=== PATIENT | male | born 1960 | race Caucasian/White ===

== ENCOUNTER 2018-02-01 12:35 | Inpatient (IN) | payer BC ==
[~2018-02-01] VITALS: Ht 177.8 cm; Wt 110.0 kg
--- NOTE | ~2018-02-01 | EC ---
PATIENT:NIGEL HUTCHINSON DATE OF SERVICE: 02/01/18 SEX: M MEDICAL RECORD: [id number] DATE OF : 58 LOCATION:D.M2 D.213 AGE OF PATIENT: 57 ADMISSION DATE: 02/01/18 REFERRING PHYSICIAN: INTERPRETING PHYSICIAN: AAKASH PATEL MD ECHOCARDIOGRAM REPORT ECHO CHARGES 4 ECHO COMPLETE Date: 02/01/18 CLINICAL DIAGNOSIS: ORTHEPNEA ECHOCARDIOGRAPHIC MEASUREMENTS (adult normal given) AC root (d.<3.7cm) 3.2 cm LV Septum d (<1.2 cm> 1.0 cm Valve Excursion 1.6 cm LV Septum (systole) 1.1 cm Left Atria (s.<4.0cm> 3.9 cm LVPW d(<1.2cm) 1.3 cm RV (d.<2.3cm) 2.8 cm LVPW (sytole) 1.4 cm LV diastole(<5.6CM) 7.6 cm MV E-F(>70mm/sec) cm LV systole 6.9 cm LVOT Diameter 2.1 cm MV exc.(>10mm) cm Est.ejection fraction (50-75%) % DOPPLER: LVIT cm/sec A 36 cm/sec E 88 cm/sec LA cm/sec RVSP 51.7 mmHg LVOT 73 cm/sec AOP1/2T m/s Asc. Ao 99 cm/sec RVOT 57 cm/sec RA cm/sec PA 75 cm/sec AV Gradient Peak 3.9 mmHg AV Mean 2.8 mmHg AV Area 2.0 cm MV Gradient Peak 3.7 mmHg MV Mean 1.4 mmHg MV Area cm COMMENTS: Manager Cancer: Peg CHANDLER Binding End Stitcher: 3 Dr. Leal TAPE# PACS Pericardial Effusion Y DATE OF SERVICE: Adequate 2-D echo, color flow and spectral Doppler, and M-mode. LVH is present. LV internal dimensions are normal. LV severely hypokinetic decreased estimated EF 20% to 25%. Aortic valve sclerosis without stenosis by Doppler interrogation. Left atrium is dilated. Mitral valve shows no prolapse. [id number] MR. Right-sided chamber is normal. Mild TR. TRANSINT:[id number] Voice Confirmation ID: [id number] DOCUMENT ID: [id number] ECHOCARDIOGRAM REPORT [id number] NIGEL HUTCHINSON AAKSAH PATEL MD at 1310 CC: [id number] DICTATION DATE: 02/01/18 1529 [employer]INT RO[employer]ERS SUPERVISOR: 02/01/18 1815 ADM IN [place] [id number] [place] [address]
--- NOTE | ~2018-02-01 | MORECARE ---
CASE MANAGEMENT DISCHARGE SUMMARY PATIENT: NIGEL HUTCHINSON UNIT: [id number] ADM DATE: 02/01/18 AGE: 57 : 58 SEX: M ROOM/BED: D.2131 AUTHOR: STEFANIE COATS PHYSICIAN: REFERRING PHYSICIAN: NIGEL KEBEDE MD DATE OF SERVICE: 02/04/18 Discharge Plan Patient Name: NIGEL HUTCHINSON Facility: [facility]:[place] : 1960 Planned Disposition: Home Anticipated Discharge Date: 02/04/18 Discharge Date: 02/04/2018 Expected LOS: 3 Initial Reviewer: [email or web address] Initial Review Date: 02/04/2018 Generated: 02/04/18 12:00 pm Comments DCP- Discharge Planning Updated by [email or web address]: Brenton Ramirez on 02/04/18 9:[address] Patient Name: NIGEL HUTCHINSON Admission Status: Elective Accout number: [id number] Admission Date: 02-01-2018 : 1960 Admission Diagnosis:SHORTNESS OF BREATH Attending: NIGEL KEBEDE Current LOS: 3 Anticipated DC Date: 02-04-2018 Planned Disposition: Home Primary Insurance: [employer] Discharge Planning Comments: CM MET WITH PT IN ROOM TO DISCUSS DISCHARGE PLANNING AND NEEDS. PT REPORTS LIVING AT HOME INDEPENDENTLY WITH HIS SPOUSE. PT HAS GLUCOMETER WITH NO MEDICAL EQUIPMENT AND NO OUTSIDE SERVICES ASSISTING IN THE HOME. PT REPORTS HE HAS NOT BEEN CHECKING HIS BLOOD SUGAR LIKE HE IS SUPPOSED TO HE HAS BEEN PAYING FOR HIS TESTING STRIPS OUT OF POCKET AND THEY ARE EXPENSIVE. CM EXPLAINED THAT PT SHOULD ASK HIS DOCTOR FOR A PRESCRIPTION, PRESENT TO HIS PHARMACY AND STRIPS MAY BE COVERED BY HIS INSURANCE. CM DISCUSSED AVAILABILITY OF HOME HEALTH, REHAB SERVICES AND MEDICAL EQUIPMENT. PT DENIES DISCHARGE NEEDS, REPORTS HIS WILL PICK WILL UP FOR DISCHARGE HOME. PT IS INTERESTED IN THE TOBACCO QUIT LINE INFORMATION; CM NOTIFIED WOODEN FENCE ERECTOR NURSE. Supervisor Mapping: Brenton Ramirez DCPIA - Discharge Planning Initial Assessment Updated by [email or web address]: Brenton Ramirez on 02/04/18 10:47 am * Is the patient Alert and Oriented? Yes * How many steps to enter\exit or inside your home? NONE * PCP DR. HERNANDEZ * Pharmacy [facility] ([facility]) ON [facility] * Preadmission Environment Home with Family * ADLs Independent * Equipment Glucometer * Other Equipment NO MEDICAL EQUIPMENT PROVIDER PREFERECE * List name and contact numbers for known caregivers / representatives who currently or will assist patient after discharge: RICHARD HUTCHINSON, SPOUSE, [phone] * Verbal permission to speak to the caregivers and representatives has been obtained from the patient. N/A * Community resources currently utilized None * Please name any agencies selected above. NONE * Additional services required to return to the preadmission environment? No * Can the patient safely return to the preadmission environment? Yes * Has this patient been hospitalized within the prior 30 days at any hospital? No Last DP export: 02/04/18 9:50 a Patient Name: NIGEL HUTCHINSON Page [phone] at 1100 All edits/amendments must be made on the electronic document DICTATION DATE: 02/04/181058 GENERAL MAINTENANCE MECHANIC: SARAH 02/04/18 105 RPT#: [id number] DC DATE:02/04/18 STATUS: DIS IN [facility] [address] [place] [address] END OF REPORT
--- NOTE | ~2018-02-01 | MORECARE ---
CASE MANAGEMENT DISCHARGE SUMMARY PATIENT: NIGEL HUTCHINSON UNIT: [id number] ADM DATE: 02/01/18 AGE: 57 : 58 SEX: M ROOM/BED: D.2131 AUTHOR: STEFANIE COATS PHYSICIAN: REFERRING PHYSICIAN: NIGEL KEBEDE MD DATE OF SERVICE: 02/04/18 Discharge Plan Patient Name: NIGEL HUTCHINSON [facility] : 1960 Planned Disposition: Home Anticipated Discharge Date: 02/04/18 Discharge Date: 02/04/2018 Expected LOS: 3 Initial Reviewer: [email or web address] Initial Review Date: 02/04/2018 Generated: 02/04/18 11:50 am DCPIA - Discharge Planning Initial Assessment Updated by [email or web address]: Brenton Ramirez on 02/04/18 10:47 am * Is the patient Alert and Oriented? Yes * How many steps to enter\exit or inside your home? NONE * PCP DR. HERNANDEZ * Pharmacy [facility] ([facility] ON [facility] * Preadmission Environment Home with Family * ADLs Independent * Equipment Glucometer * Other Equipment NO MEDICAL EQUIPMENT PROVIDER PREFERECE * List name and contact numbers for known caregivers / representatives who currently or will assist patient after discharge: RICHARD HUTCHINSON, SPOUSE, [phone] * Verbal permission to speak to the caregivers and representatives has been obtained from the patient. N/A * Community resources currently utilized None * Please name any agencies selected above. NONE * Additional services required to return to the preadmission environment? No * Can the patient safely return to the preadmission environment? Yes * Has this patient been hospitalized within the prior 30 days at any hospital? No Patient Name: NIGEL HUTCHINSON Page [phone] at 1050 All edits/amendments must be made on the electronic document DICTATION DATE: 02/04/18 1049 EVP BUSINESS DEVELOPMENT: SARAH 02/04/18 1049 RPT#: [id number] DC DATE:02/04/18 STATUS: DIS IN [id number] [place] [address] END OF REPORT
--- NOTE | ~2018-02-01 | OP ---
PATIENT NAME: NIGEL HUTCHINSON MEDICAL RECORD: [id number] :58 LOCATION:D.M2 D.2131 ADMISSION DATE:02/01/18 SURGEON: AAKASH PATEL MD DATE OF OPERATION: 02/03/2018 PROCEDURE: Left heart catheterization, selective coronary angiography, right femoral artery approach. CATHETERS: A 5-Turkish sheath, 5/4 left and right Loly, 5/4 pig. Procedure was well tolerated. The patient was returned to the ayala. Sheaths were removed. ExoSeal device was placed. FINDINGS: Left Ventriculography 30-Degree BLACK View: Shows severe global hypokinesis, reduced EF, estimated EF 15% to 20%. CORONARY ANATOMY: LEFT MAIN: Left main is free of disease. LAD: Free of disease in the diagonal system. CIRCUMFLEX: Has a long diffuse area. Multiple stenosis, at the greatest being 90%, more distal of 80%. RIGHT CORONARY ARTERY: Totally occluded and there are previous stenting and fills via left to right collaterals. PLAN: Intervention in the circumflex momentarily. DESCRIPTION OF PROCEDURE: A 5-Turkish sheath was exchanged for a 6-Turkish sheath. A 3.5 EBU guide catheter provided good guide catheter support, followed by a Whisper wire placed across the diffusely tightly stenosed circumflex, down this portion of this vessel stents were deployed, 3.5 x 18 and 3.5 x 12, both Armando drug-eluting stent up to 14 atmospheres. Final angiography shows a nice resolution of a diffuse diabetic-type stenosis with the greatest being 90%. No significant residual. RAFAELA flow was 3 throughout the procedure. Integrilin was used in the case. Sheath was closed with ExoSeal device. Paxil was loaded in the lab. TRANSINT:[id number] Voice Confirmation ID: [id number] DOCUMENT ID: [id number] AAKASH PATEL MD CC: [id number] DICTATION DATE: 02/03/18 1518 EDI MANAGER: 02/03/180 ADM IN [place] [id number] [place] [address]
--- NOTE | ~2018-02-01 | HP ---
PATIENT: NIGEL HUTCHINSON MEDICAL RECORD: [id number] ACCOUNT: [id number] LOCATION:[address] : 58 ADMISSION DATE: 02/01/18 PCP: TROY HERNANDEZ MD HISTORY AND PHYSICAL EXAMINATION DATE OF ADMISSION: 02/01/2018 CHIEF COMPLAINT: Shortness of breath. HISTORY: This is a 57-year-old white male, who has a known history of coronary artery disease, diabetes, continuing to smoke, who states that it has been tough for him to breathe for the last 3 weeks. He cannot sleep because he is short of breath. He describes orthopnea. He cannot lay down flat. He has to sit up just to sleep. He states he has been coughing a lot. He has had pain in his chest, which he attributes to coughing so much. He has abdominal pain that he attributes from coughing so much. A chest x-ray was done showing cardiomegaly and some increased congestion. He has not seen a health care social worker in at least 5 years. He has had stents in the past at [facility]. He is admitted for further evaluation and to rule out heart problems. PAST MEDICAL AND SURGICAL HISTORY: Hypertension, hypercholesterolemia and very high triglycerides, anxiety, depression, coronary artery disease, history of pancreatitis, and diabetes. PAST SURGICAL HISTORY: He has had stents placed by Dr. Sims at [facility] in 2011 or 2012. ALLERGIES: None. HOME MEDICATIONS: Gabapentin 400 mg twice a day, alprazolam 1 mg twice a day, pravastatin 40 mg at bedtime, Januvia 100 mg once a day, metoprolol tartrate once a day, metformin 1000 mg twice a day; however, he admitted to the nurse today that he has not been taking all these medicines all the time. SOCIAL HISTORY: He is . He is employed. HABITS: He smokes every day. He has an occasional beer. FAMILY HISTORY: Father is alive with hypertension. His mother at 71 due to COPD complications. REVIEW OF SYSTEMS: GENERAL: No major weight changes. HEENT: No particular sinus or allergy problems. RESPIRATORY: Long-time smoker. No diagnosis as yet for COPD or emphysema. CARDIAC: See above history with stenting by Dr. Sims years ago. He has not seen a health care social worker in several years. GASTROINTESTINAL: He has heartburn. GENITOURINARY: No significant problems there. MUSCULOSKELETAL: No significant problems there. NEUROLOGIC: No migraines. No seizures. PSYCHIATRIC: He has anxiety. PHYSICAL EXAMINATION: VITAL SIGNS: Temperature 98.1, pulse 107, respirations 18, blood pressure HISTORY AND PHYSICAL [id number] NIGEL HUTCHINSON 149/100, O2 sat 97% on 2 liters. He does not appear well. He is complaining of his abdominal bloating, pain, and inability to take a deep breath. HEENT: Grossly within normal limits. NECK: Supple. No JVD or bruit. HEART: Regular rate and rhythm. LUNGS: With decreased breath sounds in the bases bilaterally. ABDOMEN: Soft. Generalized tenderness. No guarding or rebound. No mass. EXTREMITIES: Trace to 1+ edema. LABORATORY DATA: Labs done today: CBC showed a white count of 8400, hemoglobin 14.4, hematocrit 42.3, platelets are normal. Basic metabolic panel was unremarkable. Creatinine 1.0. Glucose is high at 215. A1c is 9.5. Liver enzymes were all normal. Troponin 0.018. ProBNP 1548. IMAGING: Chest x-ray shows cardiomegaly with findings suggestive of a small left pleural effusion and left basilar atelectasis. ASSESSMENT: 1. Orthopnea. 2. Cardiomegaly. 3. Most likely congestive heart failure. PLAN: Follow up with echo. Cardiology has been consulted. Other tests or procedures as warranted. TRANSINT:[id number] Voice Confirmation ID: [id number] DOCUMENT ID: [id number] TROY HERNANDEZ MD at 0837 CC: [id number] DICTATION DATE: 02/01/181899 STATION INSPECTOR: 02/02/18 0013 [facility] IN [id number] [place] [address]
--- NOTE | ~2018-02-01 | HEMODYNAMI ---
PATIENT:NIGEL HUTCHINSON MEDICAL RECORD: [id number] : 58 [facility] [id number] ADMISSION DATE: 02/01/18 Generatedon:02/03/201815:12 Patient name: NIGEL HUTCHINSON Patient #: [id number] SSN: : 1960 Date of study: 02/03/2018 Page: Of Hemodynamic Procedure Report Patient Data Patient Demographics Procedure consent was obtained First Name: NIGEL Gender: Male Last Name: JASPER : 1960 Middle Initial: A Age: 57 year(s) Patient #: [id number] Race: Unknown Additional ID: [id number] Contact details Address: [address] [place] [address] [place] State: [place] City: [place] Zip code: [address] Past Medical History Allergies: No known allergies Admission Admission Data Admission Date: 02/01/2018 Admission Time: 12:35 Room #: [facility] Procedure Procedure Types Cath Procedure Diagnostic Procedure LHC LHC w/Coronaries Sedation Charges Moderate Sedation up to 15 minutes PCI Procedure Coronary Stent Coronary Stent Initial Procedure Description Procedure Date Procedure Date: 02/03/2018 Procedure Start Time: 14:48 Procedure End Time: 15:07 Procedure Staff Name Function Alan Johansen MD Performing Physician Yariel Mosley RT Monitor Manuela Irizarry RT Scrub Rody Crocker RN Nurse Keagan Garnett RN Representative Phlebotomy Services Procedure Data Cath Procedure Fluoroscopy Diagnostic fluoroscopy Total fluoroscopy Time: 4.1 time: 4.1 min min Diagnostic fluoroscopy Total fluoroscopy dose: dose: 1022 mGy 1022 mGy Contrast Material Contrast Material Type Amount (ml) Isovue 300 120 Entry Location Entry Primary Successful Side Size Upsize Upsize Entry Closure Succes sful Closure Location (Fr) 1 (Fr) 2 (Fr) Remarks Device Remarks Femoral Right 5 Fr 6 Fr Exoseal artery Short Estimated blood loss: 10 ml Diagnostic catheters Device Type Used For End Catheter Placement MULTIPACK JL 4.0 5Fr Procedure catheter MULTIPACK 3DRC 5Fr Procedure catheter MULTIPACK Pigtail 5 Fr Procedure catheter Procedure Complications No complications Procedure Medications Medication Administration Route Dosage 0.9% NaCl I.V. 100 ml/hr Oxygen etCO2 Nasal cannula 2 l/min Lidocaine 2% added to field 20 Heparin Flush Bag added to field 2 bags (1000units/500ml NS) Versed I.V. 1 mg Fentanyl I.V. 50 mcg Versed I.V. 1 mg Fentanyl I.V. 50 mcg Heparin Bolus I.V. 4000 units Integrilin (Bolus I.V. 10.2 ml 2mg/ml) Versed I.V. 1 mg Versed I.V. 1 mg Plavix P.O. 600 mg Hemodynamics Rest Heart Rate: 76 (bpm) Pressure Samples Time Site Value (mmHg) Purpose Heart Use Rate(bpm) 14:54 LV 107/6,34 Snapshot 83 Snapshots Pre Cath Intra NCS Post Cath Vital Signs Time Heart Resp SPO2 etCO2 NIBP Rhythm Pain Sedation Rate (ipm) (%) (mmHg) (mmHg) Status Level (bpm) 14:35:49 89 16 97 0 No Cuff NSR 0 (11) 10(A) , No pain 14:40:15 88 16 94 37.8 117/80(96) NSR 0 (11) 10(A) , No pain 14:44:33 86 13 92 30.2 121/77(89) NSR 0 (11) 10(A) , No pain 14:48:49 74 18 98 0 110/79(91) NSR 0 (11) 10(A) , No pain 14:53:01 82 16 93 33.2 121/79(93) NSR 0 (11) 9(A) , No pain 14:57:19 83 13 97 32.5 112/65(92) NSR 0 (11) 9(A) , No pain 15:02:41 78 15 98 36.3 106/72(86) NSR 0 (11) 9(A) , No pain 15:06:55 83 15 97 33.2 116/72(91) NSR 0 (11) 10(A) , No pain Medications Time Medication Route Dose Verified Delivered Reason Notes Effectiveness by by 14:34:45 0.9% NaCl I.V. 100 Alan Rody used for ml/hr [facility] Crocker procedure RN 14:34:51 Oxygen etCO2 2 Alan Rody used for Nasal l/min [facility] procedure cannula MD FITZGERALD 14:34:56 Lidocaine 2% added 20ml Alan Phillips for local to vial [facility] anesthetic field MD NEGRO 14:35:03 Heparin Flush added 2 Alan Phillips used for Bag to bags [facility] procedure (1000units/500ml field MD NEGRO NS) 14:38:52 Versed I.V. 1 mg Alan Boogie for sedation [facility] Ambros[facility] Garnett RN, MD 14:38:59 Fentanyl I.V. 50 Alan Boogie for sedation mcg [facility] Ambrosio Garnett RN, MD 14:42:05 Versed I.V. 1 mg Alan Boogie for sedation [facility] Amb[facility] Garnett RN, MD 14:42:37 Fentanyl I.V. 50 Alan Boogie for sedation mcg [facility] Ambrosio Garnett RN, MD 14:49:04 Versed I.V. 1 mg Alan Dickinsonie for sedation [facility] Amb[facility] Garnett RN, MD 14:57:34 Heparin Bolus I.V. 4000 Alan Boogie for verif ied units [facility] Ambrosio Garnett RN anticoagulation with dr MD dorman 14:59:50 Integrilin I.V. 10.2 Alan Boogie for waste d (Bolus 2mg/ml) ml [facility] Amb[facility]io Garnett RN antiplatelet 9.8 ml therapy of vial 15:02:11 Versed I.V. 1 mg Alan Boogie for sedation [facility] Ambrosio Garnett RN, MD 15:09:36 Plavix P.O. 600 [address] for mg [facility] Amb[facility]io Garnett RN antiplatelet therapy Procedure Log Time Note 14:20:35 Signed procedure consent form obtained from patient. 14:20:36 Time tracking: Regular hours (M-F 7:00 - 5:00) 14:20:43 Plan of Care:Hemodynamics will remain stable., Cardiac rhythm will remain stable., Comfort level will be maintained., Respiratory function will remain adequate., Patient/ family verbilizes understanding of procedure., Procedure tolerated without complication., Recovers from procedure without complications.. 14:21:04 H&P Date Dictated: 02/01/2018 Within 30 days and on chart., H&P Addendum completed by physician on day of procedure. (MUST COMPLETE FOR ALL OUTPATIENTS). 14:21:13 Patient allergic to No known allergies 14:21:32 Yariel ROMO(R) sent for patient. Start room use. 14:29:21 Patient received from PCU to CCL 1 Alert and oriented. Tansferred to table in Supine position. 14:29:22 Warm blankets applied, and isamar hugger turned on for patient comfort. 14:29:22 Correct patient and procedure confirmed by team. 14:29:23 ECG and BP/O2 sat monitors applied to patient. 14:29:24 Full Disclosure recording started 14:34:29 Pre-procedure instructions explained to patient. 14:34:29 Pre-op teaching completed and patient verbalized understanding. 14:34:31 Family in patients room. 14:34:33 Patient NPO since Midnight. 14:34:36 Is patient on blood thinner?No 14:34:37 Patient diabetic? Yes. 14:34:38 If diabetic: On Metformin? Yes 14:34:41 If on Metformin: Last Dose? 02/03/2018 14:34:45 0.9% NaCl 100 ml/hr I.V. was administered by Rody Crocker RN; used for procedure; 14:34:46 Previous problem with sedation/anesthesia? No ? 14:34:51 Oxygen 2 l/min etCO2 Nasal cannula was administered by Rody Crocker RN ; used for procedure; 14:34:51 Snore? Yes 14:34:52 Sleep apnea? No 14:34:53 Deviated septum? No 14:34:54 Opens mouth fully? Yes 14:34:55 Sticks out tongue? Yes 14:34:56 Lidocaine 2% 20ml vial added to field was administered by Alan Johansen MD; for local anesthetic; 14:34:56 Airway obstruction? No ? 14:35:03 Heparin Flush Bag (1000units/500ml NS) 2 bags added to field was administered by Alan Johansen MD; used for procedure; 14:35:03 Dentures? Yes OUT 14:35:09 Vital chart was started 14:36:36 IV patent on arrival in left forearm with 0.9% NaCl at [facility]. 14:36:40 Lab results completed and on chart. 14:36:43 Right groin area was prepped with chlora-prep and draped in sterile fashion 14:36:44 Alarms reviewed by Domingo Haney 14:36:45 - 14:36:49 Pre procedure: right dorsailis pedis pulse 2+ Normal; easily identifiable; not easily obliterated 14:37:31 Rhythm: sinus rhythm 14:37:42 --------ALL STOP TIME OUT------ 14:37:43 Final Timeout: patient, procedure, and site verified with staff and physician. All members of the team are in agreement. 14:37:45 Right groin site verified by team. 14:37:48 Physical assessment completed. ASA score P 2 - A patient with mild systemic disease as per Alan Johansen MD. 14:37:51 Sedation plan: IV Moderate Sedation Medication:Versed, Fentanyl 14:37:56 Use device set Femoral Dx 14:37:57 ACIST Syringe (12509) opened to sterile field. 14:38:06 Bag Decanter (2002S) opened to sterile field. 14:38:07 ACIST Hand Control (54348) opened to sterile field. 14:38:08 ACIST Manifold (86870) opened to sterile field. 14:38:09 Tegaderm 4 x 4 (1626W) opened to sterile field. 14:38:11 Medline Cath Pack ([id number]) opened to sterile field. 14:38:11 DIAGNOSTIC WIRE .035 260cm J wire (329150) opened to sterile field. 14:38:13 DIAGNOSTIC Multipack 5Fr catheter set (NS2788) opened to sterile field. 14:38:15 SHEATH 5FR [place] (PUE647) opened to sterile field. 14:38:52 Versed 1 mg I.V. was administered by Keagan Garnett RN; for sedation; 14:38:59 Fentanyl 50 mcg I.V. was administered by Keagan Garnett RN; for sedation; 14:42:05 Versed 1 mg I.V. was administered by Keagan Garnett RN; for sedation; 14:42:22 Baseline sample Acquired. 14:42:37 Fentanyl 50 mcg I.V. was administered by Keagan Garnett RN; for sedation; 14:46:31 Zero performed for pressure channel P1 14:48:15 Procedure started. 14:48:18 Local anesthetic to right femoral artery with Lidocaine 2% by Alan Valente MD.INITIAL ACCESS ONLY 14:48:40 A 5 Fr sheath was inserted into the Right Femoral artery 14:49:04 Versed 1 mg I.V. was administered by Keagan Garnett RN; for sedation; 14:50:31 A MULTIPACK JL 4.0 5Fr catheter was advanced over the wire and used for Procedure. 14:51:02 LCA angiography performed. 14:51:59 Catheter exchanged over wire. 14:52:09 A MULTIPACK 3DRC 5Fr catheter was advanced over the wire and used for Procedure. 14:52:51 RCA angiography performed. 14:53:40 Catheter exchanged over wire. 14:53:44 A MULTIPACK Pigtail 5 Fr catheter was advanced over the wire and used for Procedure. 14:54:24 LV gram done using BLACK 14:54:30 Injector settings: Ml/sec: 10, Volume: 20, 14:54:34 LV hemodynamics recorded. 14:54:53 EF : 15 % 14:54:58 Catheter removed. 14:55:27 INFLATOR Merit BasixCompak (ZK8708) opened to sterile field. 14:55:28 SHEATH 6FR [place] (KQF613) opened to sterile field. 14:55:53 GUIDE 6FR EBU 3.5 catheter ([id number]) opened to sterile field. 14:56:03 WHISPER 300cm guide wire ([id number]) opened to sterile field. 14:56:16 Sheath upsized to a 6 Fr Short. 14:56:27 6 Fr EBU 3.5 guide catheter was inserted over the wire 14:56:33 WHISPER wire advanced. 14:57:34 Heparin Bolus 4000 units I.V. was administered by Keagan Garnett RN; for anticoagulation; verified with dr dorman 14:59:33 Wire advanced across lesion. 14:59:50 Integrilin (Bolus 2mg/ml) 10.2 ml I.V. was administered by Keagan Garnett RN; for antiplatelet therapy; wasted 9.8 ml of vial 15:00:30 Place stent Inflation Number: 1 A ANGELA OTW 3.5 x 18 stent ([id number]) was prepped and advanced across the Mid CX. The stent was deployed at 14 FRANKY for 0:30 (min:sec). 15:01:45 Inflation number: 2 The stent balloon was then re-inflated across the Mid CX to 14 FRANKY for 0:45 (min:sec). 15:01:47 Stent catheter was removed intact over wire. 15:02:11 Versed 1 mg I.V. was administered by Keagan Garnett RN; for sedation; 15:04:37 Place stent Inflation Number: 3 A ANGELA OTW 3.5 x 12 stent ([id number]) was prepped and advanced across the Mid CX. The stent was deployed at 14 FRANKY for 0:30 (min:sec). 15:04:56 Stent catheter was removed intact over wire. 15:04:57 Wire removed. 15:04:58 Guide catheter removed. 15:05:07 EXOSEAL 6Fr (EX600) opened to sterile field. 15:05:15 Sheath removed intact; hemostasis achieved with Exoseal to the Right Femoral artery. 15:05:16 Procedure ended.(Physican Out) 15:05:51 Fluoroscopy time 04.10 minutes. 15:05:55 Fluoroscopy dose: 1022 mGy 15:05:55 Flurop Dose total: 1022 15:06:00 Contrast amount:Isovue 300 120ml. 15:06:02 Sharps counted by scrub and verified by R.N. 15:06:03 Insertion/operative site no bleeding no hematoma. 15:06:06 Post-op/insertion site Right Femoral artery dressed using a 4 x 4 and Tegaderm. 15:06:10 Post right femoral artery:stable, soft, clean and dry 15:06:12 Post Procedure Pulses reassessed and unchanged 15:06:15 Post-procedure physical assessment completed. ASA score P 2 - A patient with mild systemic disease as per Alan Johansen MD. 15:06:17 Post procedure rhythm: unchanged. 15:06:48 Estimated blood loss: 10 ml 15:06:49 Post procedure instruction explained to patient.Patient verbalizes understanding. 15:06:50 Patient needs reinforcement of post procedure teaching. 15:07:25 Procedure type changed to Cath procedure, Diagnostic procedure, LHC, LH C w/Coronaries, Sedation Charges, Moderate Sedation up to 15 minutes, PCI procedure, Coronary Stent, Coronary Stent Initial 15:07:26 Procedure and supply charges have been captured, reviewed, submitted an d are correct. 15:07:28 Procedure Complication : No complications 15:07:30 Vital chart was stopped 15:07:30 See physician's report for complete and final results. 15:07:31 Report given to PCU. 15:07:34 Patient transfered to PCU with Stretcher. 15:07:36 Procedure ended. 15:07:36 Full Disclosure recording stopped 15:07:41 End room use (Document Last) 15:09:36 Plavix 600 mg P.O. was administered by Keagan Garnett RN; for antiplatelet therapy; Intervention Summary Intervention Notes Time ActionType Lesion and Equipment Action# Pressure Duration Attributes Used 15:00:30 Place stent Mid CX ANGELA OTW 3.5 1 14 00:30 x 18 stent ([id number]) 15:01:45 Reinflate Mid CX ANGELA OTW 3.5 2 14 00:45 stent x 18 stent balloon ([id number]) 15:04:37 Place stent Mid CX ANGELA OTW 3.5 3 14 00:30 x 12 stent ([id number]) Device Usage Item Name Manufacture Quantity Catalog Hospital Part Current Mini mal Lot# / Number Charge Number Stock Stock Serial# Code ACIST Syringe Acist 1 66884 557939 349686 910677 20 (92138) Medical Systems Inc Bag Decanter Microtek 1 2001S 608605 09774 202395 5 (2001S) Medical Inc. ACIST Hand Acist 1 44141 334684 785537 631897 5 Control Medical (22669) Systems Inc ACIST Acist 1 15808 910180 730531 322391 5 Manifold Medical (60909) Systems Inc Tegaderm 4 x 3M 1 1626W 058124 373119 612449 5 4 (1626W) Medline Cath Medline 1 [id number] 244505 63209 415557 5 Pack ([id number]) DIAGNOSTIC [facility] 1 390067 064368 321130 833834 30 WIRE .035 260cm J wire (359577) DIAGNOSTIC Cardinal 1 YE4858 220222 00829 257986 30 Multipack 5Fr Health catheter set (BR6379) SHEATH 5FR Terumo 1 XCQ755 440490 176410 858102 5 [place] (XIQ301) MULTIPACK JL Cardinal 1 584214 5 4.0 5Fr Health catheter MULTIPACK Cardinal 1 180540 5 3DRC 5Fr Health catheter MULTIPACK Cardinal 1 659011 5 Pigtail 5 Fr Health catheter INFLATOR [facility] 1 BD8081 246802 442015 218571 15 [facility] Medical BasixCompak (MS4681) SHEATH 6FR Terumo 1 VAF580 997055 618609 596357 40 [place] (XXT720) GUIDE 6FR EBU Medtronic 1 [id number] 836916 59839 620910 3 3.5 catheter (CY3DNT37) WHISPER 300cm Amaya 1 [id number] 729964 226513 941917 5 guide wire Vascular (8372645NS) ANGELA OTW 3.5 Medtronic 1 [id number] 217765 6048796 464209 5 [id number] x 18 stent ([id number]) ANGELA OTW 3.5 Medtronic 1 [id number] 514154 8585260 260513 5 [id number] x 12 stent ([id number]) EXOSEAL 6Fr Cardinal 1 EX600 030833 507833 054676 10 (EX600) Health Signature Audit [place] Stage Time Signature Unsigned Intra-Procedure 02/03/2018 Yariel Mosley 3:12:06 PM RT(R) Signatures Monitor : Yariel Mosley RT Signature : Date : Time : [address] [place] [address]
[2018-02-01] MEDS ORDERED: XANAX1 MG PO (13:09)
[2018-02-01] MEDS ORDERED: PRAVACHOL40 MG PO (13:10)
[2018-02-01] MEDS ORDERED: BAYER ASPIRIN325 MG PO (13:10)
[2018-02-01] MEDS ORDERED: ALEVE220 MG PO (13:11)
[2018-02-01] MEDS ORDERED: GABAPENTIN100 MG PO (13:12)
[2018-02-01 13:39] VITALS: BP 149/100; BMI 37.0
[2018-02-01 14:17] LABS: BASOPHILS 0.4 % (0-2); EOSINOPHILS 0.8 % (0-7); HEMATOCRIT 42.3 % (42.0-54.0); HEMOGLOBIN 14.4 g/dL (13.5-17.5); IMMATURE GRANULOCYTES 0.5 % (0-5); LYMPHOCYTES 29.3 % (15-50); MCH 32.5 pg (26.0-34.0); MCV 95.5 fL (80.0-100.0); MONOCYTES 7.4 % (2-11); NEUTROPHILS 61.6 % (40-80); PLATELET COUNT 190 10x3/uL (130-400); RBC 4.43 10x6/uL (4.20-6.10); RDW 12.8 % (11.5-14.5); WBC 8.4 10x3/uL (4.8-10.8)
[2018-02-01 15:29] LABS: ALBUMIN 3.4 g/dL (3.4-5.0); ALKALINE PHOSPHATASE 47 U/L (46-116); ALT (SGPT) 28 U/L (10-68); BILIRUBIN - TOTAL 0.84 mg/dL (0.2-1.3); CALC OSMOLALITY 281 mosm/kg (275-300); CALCIUM 8.5 mg/dL (8.5-10.1); CARBON DIOXIDE 27.2 mmol/L (21.0-32.0); CHLORIDE - SERUM 101 mmol/L (98-107); GLUCOSE 215 mg/dL (74-106); POTASSIUM - SERUM 4.3 mmol/L (3.5-5.1); PRO BNP 1548 pg/mL (0-125); SODIUM 138 mmol/L (136-145); UREA NITROGEN 13 mg/dL (7-18); eGFR NON AFRICAN AMERICAN 81 mL/min (90-120)
[2018-02-01 15:38] LABS: CKMB 1.6 U/L (0.0-3.6); CREATINE KINASE 73 UL (21-232); TROPONIN-I 0.018 ng/mL (0.000-0.060)
[2018-02-01 16:01] VITALS: BP 149/100
[2018-02-01] MEDS ORDERED: JANUVIA100 MG PO (18:45)
[2018-02-01] MEDS ORDERED: GLUCOPHAGE1000 MG PO (18:46)
[2018-02-01] MEDS ORDERED: METOPROLOL TART50 MG PO (18:46)
[2018-02-01 19:52] LABS: CKMB 1.6 U/L (0.0-3.6); CREATINE KINASE 81 UL (21-232)
[2018-02-01 21:10] VITALS: BP 115/74
[2018-02-02] VITALS: BP 126/79
[2018-02-02 01:59] LABS: CKMB 1.3 U/L (0.0-3.6); CREATINE KINASE 74 UL (21-232); TROPONIN-I 0.021 ng/mL (0.000-0.060)
[2018-02-02 05:44] VITALS: BP 127/77
[2018-02-02 08:33] VITALS: BP 118/67
[2018-02-02 13:45] VITALS: BP 115/70
[2018-02-02 16:10] VITALS: BP 120/65
[2018-02-02 20:00] VITALS: BP 131/77
[2018-02-03] VITALS: BP 115/70
[2018-02-03 04:00] VITALS: BP 130/81
[2018-02-03 05:59] LABS: BASOPHILS 0.3 % (0-2); EOSINOPHILS 1.2 % (0-7); HEMOGLOBIN 15.3 g/dL (13.5-17.5); IMMATURE GRANULOCYTES 0.3 % (0-5); LYMPHOCYTES 27.1 % (15-50); MCH 32.6 pg (26.0-34.0); MCHC 33.3 g/dL (31.0-37.0); MEAN PLATELET VOLUME 10.8 fL (7.4-10.4); MONOCYTES 10.7 % (2-11); NEUTROPHILS 60.4 % (40-80); PLATELET COUNT 193 10x3/uL (130-400); RBC 4.69 10x6/uL (4.20-6.10); RDW 13.3 % (11.5-14.5); WBC 10.1 10x3/uL (4.8-10.8)
[2018-02-03 06:01] LABS: ANION GAP 14.2 mmol/L (8-16); CARBON DIOXIDE 30.7 mmol/L (21.0-32.0); CREATININE - SERUM 1.2 mg/dL (0.6-1.3); MCV 98.1 fL (80.0-100.0); POTASSIUM - SERUM 3.9 mmol/L (3.5-5.1)
[2018-02-03 08:12] VITALS: BP 115/75
[2018-02-03 12:00] VITALS: BP 95/65
[2018-02-03 14:25] VITALS: Ht 177.8 cm; Wt 110.0 kg
[2018-02-03 18:33] VITALS: BP 106/70
[2018-02-03 20:00] VITALS: BP 102/65
[2018-02-04 00:10] VITALS: BP 98/53
[2018-02-04 04:00] VITALS: BP 101/70
[2018-02-04 06:25] LABS: ANION GAP 15.1 mmol/L (8-16); CREATININE - SERUM 1.2 mg/dL (0.6-1.3); POTASSIUM - SERUM 4.1 mmol/L (3.5-5.1)
[2018-02-04 06:40] LABS: BASOPHILS 0.3 % (0-2); EOSINOPHILS 1.6 % (0-7); HEMATOCRIT 44.4 % (42.0-54.0); HEMOGLOBIN 14.9 g/dL (13.5-17.5); IMMATURE GRANULOCYTES 0.4 % (0-5); LYMPHOCYTES 25.7 % (15-50); MCH 32.6 pg (26.0-34.0); MCHC 33.6 g/dL (31.0-37.0); MCV 97.2 fL (80.0-100.0); MEAN PLATELET VOLUME 10.8 fL (7.4-10.4); PLATELET COUNT 182 10x3/uL (130-400); RBC 4.57 10x6/uL (4.20-6.10); RDW 13.2 % (11.5-14.5); WBC 11.1 10x3/uL (4.8-10.8)
[2018-02-04] MEDS ORDERED: COZAAR50 MG PO (08:39)
[2018-02-04] MEDS ORDERED: TOPROL XL25 MG PO (08:40)
[2018-02-04] MEDS ORDERED: ALDACTONE25 MG PO (08:41)
[2018-02-04] MEDS ORDERED: PLAVIX75 MG PO (08:42)
[2018-02-04] MEDS ORDERED: LASIX40 MG PO (08:42)
[2018-02-04 09:33] VITALS: BP 109/75
== END 2018-02-04 10:40 | disposition home or self-care (01) | DRG 246 ==
LOC: D.M2 12:35
PROVIDERS: Family Medicine; Internal Medicine Interventional Cardiology
PROC: 4A023N7 Measurement of Cardiac Sampling and Pressure, Left Heart, Percutaneous Approach (ICD-10-PCS; 2018-02-03)
PROC: B2111ZZ Fluoroscopy of Multiple Coronary Arteries using Low Osmolar Contrast (ICD-10-PCS; 2018-02-03)
PROC: B2151ZZ Fluoroscopy of Left Heart using Low Osmolar Contrast (ICD-10-PCS; 2018-02-03)
PROC: 027035Z Dilation of Coronary Artery, One Artery with Two Drug-eluting Intraluminal Devices, Percutaneous Approach (ICD-10-PCS; principal; 2018-02-03 14:21)
DX: I25.10 Atherosclerotic heart disease of native coronary artery without angina pectoris (principal); I50.21 Acute systolic (congestive) heart failure; I11.0 Hypertensive heart disease with heart failure; Z95.5 Presence of coronary angioplasty implant and graft; F41.9 Anxiety disorder, unspecified; F32.9 Major depressive disorder, single episode, unspecified; E11.65 Type 2 diabetes mellitus with hyperglycemia; E11.40 Type 2 diabetes mellitus with diabetic neuropathy, unspecified; E78.5 Hyperlipidemia, unspecified; I25.82 Chronic total occlusion of coronary artery

== ENCOUNTER → 2018-06-22 08:06 | Outpatient (CLI) | payer BC ==
[2018-02-03 14:25] VITALS: BMI 34.7
[~2018-06-22 08:06] MED LIST: ALDACTONE25 MG PO; ALEVE220 MG PO; BAYER ASPIRIN325 MG PO; COZAAR50 MG PO; GABAPENTIN100 MG PO; GLUCOPHAGE1000 MG PO; JANUVIA100 MG PO; LASIX40 MG PO; METOPROLOL TART50 MG PO; PLAVIX75 MG PO; PRAVACHOL40 MG PO; TOPROL XL25 MG PO; XANAX1 MG PO
--- NOTE | 2018-06-28 08:49 | EC ---
PATIENT:NIGEL HUTCHINSON DATE OF SERVICE: 06/22/18 SEX: M MEDICAL RECORD: [id number] DATE OF : 58 LOCATION:[facility] [place] AGE OF PATIENT: 57 ADMISSION DATE: 06/22/18 REFERRING PHYSICIAN: INTERPRETING PHYSICIAN: AAKASH PATEL MD ECHOCARDIOGRAM REPORT ECHO CHARGES 4 ECHO COMPLETE Date: 06/22/18 CLINICAL DIAGNOSIS: CARDIOMYOPATHY, ASSESS EF, HX OF CAD ECHOCARDIOGRAPHIC MEASUREMENTS (adult normal given) AC root (d.<3.7cm) 4.3 cm LV Septum d (<1.2 cm> 1.1 cm Valve Excursion 2.1 cm LV Septum (systole) 1.2 cm Left Atria (s.<4.0cm> 4.8 cm LVPW d(<1.2cm) 1.0 cm RV (d.<2.3cm) 4.1 cm LVPW (sytole) 1.1 cm LV diastole(<5.6CM) 8.0 cm MV E-F(>70mm/sec) cm LV systole 7.0 cm LVOT Diameter 2.3 cm MV exc.(>10mm) 1.5 cm Est.ejection fraction (50-75%) % DOPPLER: LVIT cm/sec A 94.0 cm/sec E 79.0 cm/sec LA cm/sec RVSP 14 mmHg LVOT 73 cm/sec AOP1/2T m/s Asc. Ao 1265 cm/sec RVOT 86 cm/sec RA cm/sec PA 109 cm/sec AV Gradient Peak 6.37 mmHg AV Mean 3.46 mmHg AV Area 2.3 cm MV Gradient Peak 4.04 mmHg MV Mean 1.56 mmHg MV Area cm COMMENTS: Manager Marketing Communications: 2 JAROCHO IRIZARRY Shell Molder: 3 Dr. Leal TAPE# PACS Pericardial Effusion Y DATE OF SERVICE: 06/22/2018 Adequate 2-D echo, color-flow and spectral Doppler, and M-mode. No LVH. LV internal dimension is dilated. LV is globally hypokinetic with reduced EF. Estimated EF is 20% to 25%. Aortic valve is tricuspid. No evidence of stenosis by Doppler interrogation. Left atrium is dilated at 4.8 cm. Mitral valve shows no prolapse. Trace MR. Right-sided chambers are grossly normal. Trace TR. ECHOCARDIOGRAM REPORT [id number] NIGEL HUTCHINSON TRANSINT:[id number] Voice Confirmation ID: [id number] DOCUMENT ID: [id number] AAKASH PATEL MD at 0849 CC: [id number] DICTATION DATE: 06/23/181401 [employer] PROCESS SERVER DEVELOPER: 06/23/18 1843 DEP CLI 06/22/18 [facility] [address] [id number]
== END | disposition home or self-care (01) ==
LOC: D.HCCARDIO 08:06
PROVIDERS: ATTEND Internal Medicine Interventional Cardiology
DX: I42.9 Cardiomyopathy, unspecified (principal)